=== PATIENT | female | born 1985 | race African-American/Black ===

== ENCOUNTER → 2016-10-24 | Outpatient (CLI) | payer BC ==
[2014-02-15 14:10] VITALS: BP 108/68
[~2016-10-24] MED LIST: BECL8.7A6 IH; DOCU-109 PO; LORA10TA68 PO; OXYC-323 PO; PREN1TAB58 PO
--- NOTE | 2016-10-24 08:31 | RAD ---
Exam performed: Pelvic Ultrasound. Indication: Diffuse Pelvic pain Date of Service: 10/24/16. No priors Technique: Transabdominal and transvaginal Findings: The uterus is anteverted and measures 9.7 x 6.0 x 3.3 cm. The endometrial stripe measures 0.40 cm with some fluid in the endometrial stripe Both ovaries are normal. The right ovary measures 1.9 x 1.0 x 1.4 cm , the left ovary measures 2.0 x 0.8 x 1.2 cm. There is no solid or cystic mass lesion. No free fluid Impression: 1. Trace amount of fluid in the endometrial stripe otherwise essentially unremarkable exam.
--- NOTE | 2016-10-24 10:49 | RAD ---
Exam performed: Complete abdominal sonogram. Indication:Diffuse abdominal pain Date of exam: 10/24/16 Technique:Real time brewster scale imaging of the abdomen is performed and images are obtained. Findings : The liver is normal in size and echogenicity. It measures 17.8 cm in length. No intra- or extrahepatic biliary dilatation is present. The common duct measures 2.7 mm . The gallbladder appears normal. The visualized portions of the pancreas are unremarkable. The spleen is normal in size. Both kidneys are unremarkable without evidence for hydronephrosis.Right kidney measures 11.3 x 6.3 x 4.2 and the left kidney measures 10.8 x 4.6 x 6.6. The inferior vena cava and aorta appear normal. Impression: Normal abdominal ultrasound.
== END | disposition home or self-care (01) ==
LOC: US 06:59
PROVIDERS: ATTEND Physician Assistant Surgical
DX: R10.2 Pelvic and perineal pain (principal)
CPT/HCPCS: 76700; 76830; 76856

== ENCOUNTER → 2016-12-05 | Day surgery (SDC) | payer BC ==
[~2016-12-05] MED LIST changes: +CETI10TA22 PO; +HYDROmorphone 2 MG/ML VIAL IV PRN; +IV RINGERS,LACTATED 1000ML 1,000 ML IV SCH; +LIDOCAINE 1% PF 2 ML VIAL. ID PRN; +LIDOCAINE 2% PF Vial for OR 5 ML VIAL. ONE; +MORPHINE SULFATE 2 MG/ML DISP.SYRIN. IV PRN; +ONDANSETRON PF 4 MG/2 ML VIAL. IV PRN; +PROCHLORPERAZINE 10 MG/2 ML VIAL. IV PRN; +PROPOFOL 40 ML IV ONE; +PROVENTIL HFA6.7 GM IH; +fentaNYL PF VIAL 100 MCG/2 ML VIAL IV PRN
[2016-12-05 09:17] LABS: NEG OBC UR NEG; POS OBC UR POS
--- NOTE | 2016-12-05 09:45 | PDOC1 ---
History and Physical Date of Admission Date of Admission DATE: 12/05/16 TIME: 09:38 Source Source: Chart review, Patient History of Present Illness History of Present Illness 31 y/o female with several months h/o abdominal pain, change in BH's (increased frequency and occasionally loose, though not persistent diarrhea) and intermittent rectal bleeding. PC abdominal discomfort. Past Medical History Pulmonary: Asthma Past Surgical History Past Surgical History: Hernia Repair, Other (eye surgery) Family History Family History: Diabetes, Hypertension Social History Smoke: No ALCOHOL: occassional Drugs: None Current Medications Current Medications Current Medications Ondansetron HCl (Zofran) 4 mg PRN Q6HRS PRN IV NAUSEA/VOMITING; Start at 07:00; Stop 12/05/16 at 23:00 Fentanyl Citrate (Fentanyl 2ml Vial) 25 mcg PRN Q5MIN PRN IV MILD PAIN; Start 12/05/16 at 07:00; Stop 12/05/16 at 23:00 Fentanyl Citrate (Fentanyl 2ml Vial) 50 mcg PRN Q5MIN PRN IV MODERATE PAIN; Start 12/05/16 at 07:00; Stop 12/05/16 at 23:00 Morphine Sulfate 1 mg PRN Q10MIN PRN IV SEVERE PAIN; Start 12/05/16 at 07:00; Stop 12/05/16 at 23:00 Ringer's Solution 1,000 ml @ 30 mls/hr Q24H IV Last administered on t 09:18; Start 12/05/16 at 07:00; Stop 12/05/16 at 18:59 Lidocaine HCl (Xylocaine-Mpf 1% Vial) 2 ml PRN 1X PRN ID IV START; Start 12/05 at 07:00; Stop 12/05/16 at 23:00 Hydromorphone HCl (Dilaudid) 0.5 mg PRN Q10MIN PRN IV SEV PAIN, Second choice; Start 12/05/16 at 07:00; Stop 12/05/16 at 23:00 Prochlorperazine Edisylate (Compazine) 5 mg PACU PRN PRN IV NAUSEA, MRX1; Start 12/05/16 at 07:00; Stop 12/05/16 at 23:00 Ringer's Solution 1,000 ml @ 75 mls/hr [id number] IV ; Start 12/05/16 at 09:15; Stop 12/06/16 at 09:14 Propofol 40 ml @ As Directed STK-MED ONCE IV ; Start 12/05/16 at 09:03; Stop 12/05/16 at 09:04; Status DC Lidocaine HCl (Lidocaine Pf 2% Vial) 5 ml STK-MED ONCE .ROUTE ; Start 12/05/16 at 09:04; Stop 12/05/16 at 09:05; Status DC Active Scripts Active Reported Proventil Hfa Inhaler (Albuterol Sulfate) 6.7 Gm Hfa.aer.ad 1 Puff IH PRN Q4HRS PRN Zyrtec (Cetirizine Hcl) 10 Mg Tablet 1 Tab PO DAILY Qvar 80MCG Inhaler (Beclomethasone Dipropionate) 8.7 Gm Aer.w.adap 2 Puff IH BID Allergies Allergies: Coded Allergies: metronidazole (Verified Allergy, Intermediate, Rash, 12/05/16) sulfamethoxazole (Verified Allergy, Intermediate, 12/05/16) thrush trimethoprim (Verified Allergy, Intermediate, 12/05/16) thrush ROS Review of System Otherwise negative. Physical Exam General: Alert, Oriented X3, Cooperative, No acute distress Lungs: Clear to auscultation Heart: S1S2, RRR, no gallops, no murmurs Abdomen: Normal bowel sounds, Soft, No tenderness, No hepatosplenomegaly, No masses Rectal Exam: deferred Extremities: No cyanosis, No edema Skin: No significant lesion Neuro: Normal speech, Strength at 5/5 X4 ext, Normal tone, Sensation intact, Cranial nerves 3-12 NL, Reflexes 2+ Psych/Mental Status: Mental status NL, Mood NL Vitals Vitals Vital Signs Date Time Temp Pulse Resp B/P (MAP) Pulse Ox O2 Delivery O2 Flow Rate FiO2 12/05/16 09:09 98.4 97 18 99 98.4 Labs Labs Laboratory Tests Test 12/05/16 09:05 Urine Test Negative (NEG) Laboratory Tests Test 12/05/16 09:05 Urine Test Negative (NEG) VTE Prophylaxis Ordered VTE Prophylaxis Devices: No VTE Pharmacological Prophylaxi: No Assessment/Plan Assessment/Plan IMP: Change in bowel habits/rectal bleeding. PC abdominal pain. PLAN: EGD/colonoscopy. LA RAZA MD Dec 05, 2016 09:45
[2016-12-05 10:55] VITALS: BP 132/68
--- NOTE | 2016-12-06 07:42 | PDOC4 ---
PROCEDURE Procedure EGD/colonoscopy Indications: upper abd pain PC/rectal bleeding. Meds: per anesthesia. Findings: CHEYANNE normal. 'Scope advanced to TI. Mucosa normal in ileum and colon. No tics. 8mm polyp, rectum, removed with cold snare; some "ooze" after and clipped x 2 with cessation. No hemorrhoids. Random biopsies from right colon and rectum. E--Less than grade I reflux esophagitis. G--Non-specific antral erythema, biopsies done. D--Normal [place]. well. IMP: Rectal polyp. Mild reflux esophagitis. Antral erythema, biopsied. PLAN: H2-jovana prn. Await path. Resume other meds, diet as before. F/u in 2 weeks. LA RAZA MD Dec 06, 2016 07:42
== END | disposition home or self-care (01) ==
LOC: ENDOS 08:46
PROVIDERS: ATTEND Internal Medicine Gastroenterology
DX: K62.1 Rectal polyp (principal); K21.0 Gastro-esophageal reflux disease with esophagitis; K31.89 Other diseases of stomach and duodenum; J45.909 Unspecified asthma, uncomplicated; D64.9 Anemia, unspecified; Z88.1 Allergy status to other antibiotic agents
CPT/HCPCS: 43239; 45380; 45385; 81025; 88305; 88342; J2704; J2001

== ENCOUNTER → 2021-02-14 | Outpatient (CLI) | payer BC ==
[2016-12-05 10:55] VITALS: BP 132/68
[~2021-02-14] MED LIST changes: -CETI10TA22 PO; +CETI10TA74 PO; -HYDROmorphone 2 MG/ML VIAL IV PRN; -IV RINGERS,LACTATED 1000ML 1,000 ML IV SCH; -LIDOCAINE 1% PF 2 ML VIAL. ID PRN; -LIDOCAINE 2% PF Vial for OR 5 ML VIAL. ONE; -MORPHINE SULFATE 2 MG/ML DISP.SYRIN. IV PRN; -ONDANSETRON PF 4 MG/2 ML VIAL. IV PRN; -OXYC-323 PO; +OXYC1TAB15 PO; -PROCHLORPERAZINE 10 MG/2 ML VIAL. IV PRN; -PROPOFOL 40 ML IV ONE; -fentaNYL PF VIAL 100 MCG/2 ML VIAL IV PRN
--- NOTE | 2021-02-14 17:16 | CARD ---
MR#: [id number] Date of Study: 02/14/2021 Ordering Physician: CALI SINGH, Referring Physician: CALI SINGH, Tech: Ruchi Vega RUST APPROVED REPORT EXAM: Two-dimensional and M-mode echocardiogram with Doppler and color Doppler. Other Information Quality : GoodHR: 78bpm Rhythm : NSR INDICATION Murmur 2D DIMENSIONS RVDd3.7 (2.9-3.5cm)Left Atrium(2D)3.3 (1.6-4.0cm) IVSd1.0 (0.7-1.1cm)LVDd4.7 (3.9-5.9cm) PWd0.9 (0.7-1.1cm)LVDs3.0 (2.5-4.0cm) FS (%) 35.1 %SV65.8 ml Aortic Valve AoV Peak Karson.141.3cm/sAoV VTI27.4cm AO Peak GR.8.0mmHgLVOT Peak Karson.119.7cm/s AO Mean GR.4mmHg Mitral Valve MV E Ttnefcsi30.3cm/sMV DECEL [id number] MV A Irmslhhz30.8cm/sE/A Ratio1.2 LEFT VENTRICLE The left ventricle is normal size. There is normal left ventricular wall thickness. The left ventricu lar systolic function is normal and the ejection fraction is within normal range. LV ejection fracti on of 55 to 60%. There is normal LV segmental wall motion. The left ventricular diastolic function a nd filling is normal for age. RIGHT VENTRICLE The right ventricle is normal size. There is normal right ventricular wall thickness. The right ventr icular systolic function is normal. ATRIA The left atrium size is normal. The right atrium size is normal. The interatrial septum is intact wit h no evidence for an atrial septal defect or patent foramen ovale as noted on 2-D or Doppler imaging. AORTIC VALVE The aortic valve is normal in structure and function. Doppler and Color Flow revealed no significant aortic regurgitation. There is no significant aortic valvular stenosis. MITRAL VALVE The mitral valve is normal in structure and function. There is no evidence of mitral valve prolapse. There is no mitral valve stenosis. Doppler and Color-flow revealed trace mitral regurgitation. TRICUSPID VALVE The tricuspid valve is normal in structure and function. Doppler and Color Flow revealed no tricuspid valve regurgitation noted. There is no tricuspid valve stenosis. PULMONIC VALVE The pulmonary valve is normal in structure and function. Doppler and Color Flow revealed mild pulmoni c valvular regurgitation. GREAT VESSELS The aortic root is normal in size. The ascending aorta is normal in size. The IVC is normal in size a nd collapses >50% with inspiration. PERICARDIAL EFFUSION There is no evidence of significant pericardial effusion. Critical Notification Critical Value: No <Conclusion> The left ventricle is normal size. The left ventricular systolic function is normal and the ejection fraction is within normal range. LV ejection fraction of 55 to 60%. Doppler and Color Flow revealed no significant aortic regurgitation. There is no significant aortic valvular stenosis. Doppler and Color-flow revealed trace mitral regurgitation. Doppler and Color Flow revealed no tricuspid valve regurgitation noted. Signed by : Cali Singh MD Electronically Approved : 02/14/2021 17:15:52
== END ==
LOC: ECHO 10:48
PROVIDERS: ATTEND Internal Medicine Cardiovascular Disease
DX: I37.1 Nonrheumatic pulmonary valve insufficiency (principal); R01.1 Cardiac murmur, unspecified
CPT/HCPCS: 93306